=== PATIENT | female | born 1950 | race Caucasian/White ===

== ENCOUNTER 2022-02-26 22:35 | Emergency (ER) | payer OTHER, MEDICARE ==
[~2022-02-26] VITALS: Ht 154.9 cm; Wt 86.4 kg
[2022-02-26] MEDS: LIDOCAINE/EPI/TETRACAINE TOPICAL GEL 3 ML. TP ONE (23:00)
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
[2022-02-26 23:03] VITALS: BP 138/87
--- NOTE | 2022-02-26 23:25 | RAD ---
Exam: CT head INDICATION: Fall, occipital scalp laceration TECHNIQUE: Sequential axial images through the head were obtained without the administration of IV co ntrast. Exposure: One or more of the following in the visualized dose reduction techniques were utilized for this examination: 1. Automated exposure control 2. Adjustment of the MA and/or KV according to patient size 3. Use of iterative of reconstructive technique Comparisons: None FINDINGS: No focal parenchymal lesion or hemorrhage is identified. There is no midline shift or sulcal effaceme nt. Mild patchy hypodensity in the periventricular white matter. No acute vascular territory infarction i s identified. Greene-white distinction is preserved. The ventricular system is within normal limits without compression hydrocephalus. The basal cisterns are well maintained. Soft tissue irregularity along the left occipital region. The visualized portions of the paranasal si nuses and mastoid air cells are well-pneumatized. No acute fractures. IMPRESSION: Soft tissue irregularity at the left occipital region representing laceration without underlying osse ous or intracranial abnormality Electronically signed by: Steve Li MD (02/26/2022 11:23 PM) [facility]
[2022-02-27] MEDS: CEPHALEXIN 250 MG CAPSULE PO ONE (00:27)
[2022-02-27] MEDS: oxyCODONE/APAP 5/325 1 TAB TABLET PO ONE (00:27)
== END 2022-02-27 00:35 | disposition home or self-care (01) ==
LOC: ER 22:35
DX: S01.01XA Laceration without foreign body of scalp, initial encounter (principal); W05.2XXA Fall from non-moving motorized mobility scooter, initial encounter; Y93.89 Activity, other specified; Y92.89 Other specified places as the place of occurrence of the external cause; Y99.8 Other external cause status
CPT/HCPCS: 12001; 70450; 99284